=== PATIENT | female | born 1985 | race Caucasian/White ===

== ENCOUNTER 2017-08-05 01:16 | Emergency (ER) | payer MEDICAID, OTHER ==
[~2017-08-05 01:16] MED LIST: MO6B PO
[2017-08-05] MEDS ORDERED: TETANUS/DIPHTHERIA TOXOID [ADULT] 0.5 ML VIAL IM ONE (01:40)
[2017-08-05] MEDS ORDERED: LIDOCAINE HCL 1% 20 ML VIAL ONE (01:45)
[2017-08-05] MEDS ORDERED: ACETAMINOPHEN-CODEINE ELIXIR 5 ML UDCUP ONE (01:58)
== END 2017-08-05 02:41 | disposition home or self-care (01) ==
LOC: EDH 01:16
DX: S61.011A Laceration without foreign body of right thumb without damage to nail, initial encounter (principal); Z72.0 Tobacco use; W25.XXXA Contact with sharp glass, initial encounter; Y93.89 Activity, other specified; Y92.098 Other place in other non-institutional residence as the place of occurrence of the external cause; Y99.8 Other external cause status
CPT/HCPCS: 12042; 73130; 90471; 90714

== ENCOUNTER 2023-05-16 12:50 | Emergency (ER) | payer OTHER ==
[~2023-05-16] VITALS: Ht 152.4 cm; Wt 81.6 kg
[~2023-05-16 12:50] MED LIST changes: +IBUP-2088 PO; -MO6B PO
[2023-05-16 13:02] VITALS: BP 122/67; PULSE 73; RESP 16
[2023-05-16 13:20] LABS: HEMATOCRIT 40.8 % (36-48); MEAN CORPUSCULAR HEMOGLOBIN 30.8 pg (27.0-33.0); MEAN CORPUSCULAR HGB CONC 33.3 g/dL (32.0-36.0); MEAN CORPUSCULAR VOLUME 92.5 fL (79-99); RED BLOOD CELL COUNT(AUTO) 4.41 MIL/uL (4.00-5.50); RED CELL DISTRIBUTION WIDTH 12.4 % (11.0-15.5); WHITE BLOOD COUNT (AUTO) 8.2 K/uL (4.8-10.8)
[2023-05-16 13:30] LABS: CREATININE 0.7 mg/dL (0.5-1.5); POTASSIUM 3.6 mmol/L (3.5-5.1)
[2023-05-16 13:35] LABS: ALBUMIN 3.7 g/dL (3.5-5.0); BILIRUBIN,TOTAL 0.5 mg/dL (0.2-1.0)
[2023-05-16] MEDS ORDERED: MECL-302 PO (14:40)
== END 2023-05-16 14:48 | disposition home or self-care (01) ==
LOC: EDH 12:50
DX: R00.2 Palpitations (principal); R42 Dizziness and giddiness; Z79.899 Other long term (current) drug therapy
CPT/HCPCS: 36415; 80053; 84484; 85027; 93005

== ENCOUNTER 2024-01-12 13:34 | Emergency (ER) | payer BC ==
[~2024-01-12] VITALS: Ht 152.4 cm; Wt 75.7 kg
[~2024-01-12 13:34] MED LIST changes: +MECL-302 PO
[2024-01-12 14:10] VITALS: BP 116/73; PULSE 68; RESP 17; O2SAT 99
[2024-01-12] MEDS: NEOMY SULF/BACITRA/POLYMYXIN B 1 EACH PACKET TP ONE (14:22)
[2024-01-12] MEDS: acetaMINOPHEN 500 MG TABLET PO ONE (14:22)
[2024-01-12] MEDS: LIDOCAINE HCL 1% 20 ML VIAL INJ SCH (14:23)
[2024-01-12] MEDS: teTANUS/diphthERIA TOXOID [ADULT] 0.5 ML VIAL IM ONE (14:25)
== END 2024-01-12 14:52 | disposition home or self-care (01) ==
LOC: EDH 13:34
DX: S61.216A Laceration without foreign body of right little finger without damage to nail, initial encounter (principal); Z79.899 Other long term (current) drug therapy; W26.0XXA Contact with knife, initial encounter; Y93.89 Activity, other specified; Y92.89 Other specified places as the place of occurrence of the external cause; Y99.8 Other external cause status
CPT/HCPCS: 12001; 90471; 90714

== ENCOUNTER 2024-03-09 03:54 | Emergency (ER) | payer BC ==
[~2024-03-09] VITALS: Ht 152.4 cm; Wt 76.7 kg
[2024-03-09 03:55] VITALS: TEMP 97.6
--- NOTE | 2024-03-09 04:42 | ERN ---
General Chief Complaint: Dizzy/Light Headed Stated Complaint: C/O DIZZINESS Time Seen by MD: 04:02 Source: patient History of Present Illness Initial Comments Patient is a 38-year-old female coming in to be evaluated for dizziness. Patient states the symptoms began earlier today. She decided to come in to be evaluated. She also states that she had the symptoms before in the past. Allergies: Coded Allergies: No Known Drug Allergies (Unverified Allergy, Unknown, 02/09/14) Home Meds Active Scripts Meclizine HCl (Meclizine HCl) 25 Mg Tablet, 25 MG PO TID for vertigo, #30 TAB 0 Refills Prov:SONDRA GUEVARA [employer]APLE 05/16/23 Reported Medications Ibuprofen (Motrin/Advil) 600 Mg Tab, 600 MG PO Q8H PRN for PAIN LEVEL 1 TO 5, #20 TAB 01/05/16 Past Medical History Past Medical History: No Pertinent History Medical History Other: DENIES HX Past Surgical History: None Female( History) History: Not Applicable LMP: Jan 26, 2024 ROS Dictation CONSTITUTIONAL: No chills, no fever, no weakness, no diaphoresis, no malaise. HEAD/FACE: No signs of trauma. EENT: No eye pain, no blurred vision, no tearing, no double vision, no ear pain, no ear discharge, no nose pain, no nasal congestion, no throat pain, no throat swelling, no mouth pain. RESPIRATORY: No cough, no orthopnea, no SOB, no stridor, no wheezing. CARDIOVASCULAR: No chest pain, no edema, no palpitations, no syncope. GASTROINTESTINAL/ABDOMINAL: No abdominal pain, no constipation, no diarrhea, no nausea, no vomiting. GENITOURINARY: No abnormal discharge, no dysuria, no frequent urination, no hematuria. No complaints of pain in the genitals. MUSCULOSKELETAL: No back pain, no gout, no joint pain, no joint swelling, no muscle pain, no muscle stiffness, no neck pain. INTEGUMENTARY: No change in color, no change in hair/nails, no dryness, no lesion, no lumps, no rash. NEUROLOGICAL/PSYCH: No anxiety, not depressed, no emotional problem, no headach e, no numbness, no pre-existing deficit, no history of seizures, no tremors, no weakness. HEMATOLOGIC/LYMPHATIC: Not anemic, no history of blood clots, no apparent bleeding, no bruising, glands not swollen. All Systems Negative, Except as Noted. Physical Exam Physical Exam Dictation VITAL SIGNS: Reviewed. GENERAL APPEARANCE: Alert, oriented x3, no acute distress, obese. HEAD AND FACE: Non-traumatic. EYES: PERRL, pink conjunctivas, eyelid no trauma, anterior chamber clear. EARS: Pinnas intact and no signs of trauma or erythema. Ear canals clear and no discharge. TMs no erythema. NOSE: No discharge, no bleeding. OROPHARYNX: Mouth normal, teeth no caries, tongue pink. Pharynx clear, no erythema. Tonsils no exudates, no abscesses noted. Mucous membrane moist. NECK: Supple, non-tender, no thyromegaly, no masses, no JVD, no bruits. BREAST: Deferred. CHEST: No tenderness, no crepitus, no paradoxical movement, no retractions. LUNGS: Clear, well-ventilated, symmetric, no rales, no wheezing, no rhonchi, no stridor, good breath sounds bilaterally. HEART: Regular rate, regular rhythm, no murmur, no gallops. VASCULAR: No peripheral edema. ABDOMEN: Soft, positive bowel sounds, nondistended, no guarding, nontender, no rebound, no masses no hepatomegaly, no splenomegaly, no Goldberg's sign, no hernias. RECTAL: Deferred. GENITAL: Deferred. NEUROLOGICAL: Normal speech, gross motor function intact, gross sensory function intact. MUSCULOSKELETAL: Neck nontender, full range of motion, back nontender, full range of motion. EXTREMITIES: Nontender, full range of motion. SKIN: Color pink, dry, no turgor, no rash, no lacerations, no abrasions, no contusions. LYMPHATICS: Deferred. Results Laboratory and Microbiology Lab and Micro Result Laboratory Tests Test 03/09/24 04:38 White Blood Count 8.5 K/uL (4.8-10.8) Red Blood Count 4.17 MIL/uL (4.00-5.50) Hemoglobin 13.1 g/dL (12.0-16.0) Hematocrit 38.7 % (36-48) Mean Corpuscular Volume 92.8 fL (79-99) Mean Corpuscular Hemoglobin 31.4 pg (27.0-33.0) Mean Corpuscular Hemoglobin Concent 33.9 g/dL (32.0-36.0) Red Cell Distribution Width 11.9 % (11.0-15.5) Platelet Count 273 K/uL (130-400) Mean Platelet Volume 10.6 fL (7.5-10.5) H Immature Granulocyte % (Auto) 0.1 % (0-1) Neutrophils (%) (Auto) 64.5 % (40.0-77.0) Lymphocytes (%) (Auto) 25.6 % (21.0-51.0) Monocytes (%) (Auto) 7.3 % (3.0-13.0) Eosinophils (%) (Auto) 1.9 % (0.0-8.0) Basophils (%) (Auto) 0.6 % (0.0-5.0) Neutrophils # (Auto) 5.5 K/uL (1.8-7.7) Lymphocytes # (Auto) 2.2 K/uL (1.0-4.8) Monocytes # (Auto) 0.6 K/uL (0.1-1.0) Eosinophils # (Auto) 0.16 K/uL (0.00-0.70) Basophils # (Auto) 0.05 K/uL (0.00-0.20) Absolute Immature Granulocyte (auto 0.01 K/uL (0-1) Nucleated Red Blood Cells 0.0 % (0.0-0.19) Prothrombin Time 10.4 SEC (9.6-11.6) Prothromb Time International Ratio 0.96 (0.85-1.15) Urine Color COLORLESS (YELLOW) Urine Appearance CLEAR (CLEAR) Urine pH 7.0 (5.0-8.0) Urine Specific [place] 1.008 (1.001-1.031) Urine Protein NEGATIVE mg/dL (NEGATIVE) Urine Glucose (UA) NEGATIVE mg/dL (NEGATIVE) Urine Ketones NEGATIVE mg/dL (NEGATIVE) Urine Occult Blood NEGATIVE (NEGATIVE) Urine Nitrate NEGATIVE (NEGATIVE) Urine Bilirubin NEGATIVE mg/dL (NEGATIVE) Urine Urobilinogen 0.2 mg/dL (0.2-1.0) Urine Leukocyte Esterase NEGATIVE Opal/uL Urine HCG, Qualitative NEGATIVE (NEGATIVE) Sodium Level 138 mmol/L (136-145) Potassium Level 3.3 mmol/L (3.5-5.1) L Chloride Level 104 mmol/L (101-111) Carbon Dioxide Level 26 mmol/L (21-32) Blood Urea Nitrogen 8 mg/dL (7-18) Creatinine 0.7 mg/dL (0.5-1.0) Glomerular Filtration Rate Calc 114 mL/min (>90) Random Glucose 113 mg/dL (70-105) H Total Calcium 8.3 mg/dL (8.5-10.1) L Total Creatine Kinase 140 U/L (21-232) Troponin I High Sensitivity < 4 ng/L (4-50) L B-Type Natriuretic Peptide 14 pg/mL (0-100) Urine Opiates Screen NEGATIVE (NEGATIVE) Urine Barbiturates Screen NEGATIVE (NEGATIVE) Urine Phencyclidine Screen NEGATIVE (NEGATIVE) Urine Amphetamines Screen NEGATIVE (NEGATIVE) Urine Benzodiazepines Screen NEGATIVE (NEGATIVE) Urine Cocaine Screen NEGATIVE (NEGATIVE) Urine Marijuana (THC) Screen POSITIVE (NEGATIVE) H Labs Reviewed?: Yes EKG/XRAY/US/CT/MRI EKG Comment 03/09/2024 time 4:41 a.m. Ventricular rate 65 Sinus rhythm [place] [address] wave elevation or depression MDM MDM: Differential diagnosis: Cannabis abuse, dehydration, URI Patient is a 38-year-old female coming in to be evaluated for vertigo. Upon evaluation patient was positive for cannabis I counseled her into avoiding cannabis as she states that the nauseousness it was causing her dizziness. Patient is alert and oriented since she was hydrated and given antiemetics states he feels better. ED Course Orders Procedure Category Date Status Time Cbc With Differential LAB 03/09/24 Complete 04:09 Prothrombin Time With LAB 03/09/24 Complete INR 04:09 B-Type Natriuretic LAB 03/09/24 Complete Peptide 04:09 12 Lead Ekg Tracing- EKG 03/09/24 Complete Technical 04:09 Lactated Ringers PHA 03/09/24 Complete 1000ml (Lactated 04:30 Creatine Kinase, Total LAB 03/09/24 Complete 04:09 Troponin I High LAB 03/09/24 Complete Sensitivity 04:09 Urinalysis Profile LAB 03/09/24 Complete 04:09 Basic Metabolic Panel LAB 03/09/24 Complete 04:09 Meclizine Hcl 25 Mg PHA 03/09/24 Complete (Antivert 25 Mg) 04:30 Covid Rna Naat LAB 03/09/24 Logged 04:09 Drug Screen Urine LAB 03/09/24 Complete 04:34 ,Urine Test LAB 03/09/24 Complete 05:23 Haloperidol Inj PHA 03/09/24 Complete (Haldol Inj) 05:30 Ondansetron 4mg Inj PHA 03/09/24 Complete (Zofran 4mg Inj) 06:00 Current Medications Medications (Trade) Dose Ordered Sig/Nazia Route PRN Reason Start Time Stop Time Status Last Admin Dose Admin Haloperidol Lactate (Haldol Inj) 2.5 mg ONCE STAT IV 03/09/24 05:30 03/09/24 05:31 DC Lactated Ringer's 1,000 ml @ 0 mls/hr ONCE ONCE IV 03/09/24 04:30 03/09/24 04:31 DC 03/09/24 04:45 Meclizine HCl (ANTIvert 25 mg) 25 mg ONCE ONCE PO 03/09/24 04:30 03/09/24 04:31 DC 03/09/24 04:45 Ondansetron HCl (zoFRAN 4MG INJ) 4 mg ONCE ONCE IVP 03/09/24 06:00 03/09/24 06:01 DC 03/09/24 05:42 Vital Signs Date Time Temp Pulse Resp B/P (MAP) Pulse Ox O2 Delivery O2 Flow Rate FiO2 03/09/24 05:07 61 18 104/63 98 Room Air* 0 21 03/09/24 03:55 97.5 76 20 134/84 98 Room Air DX & DISP Disposition: Discharge Departure Impression: Primary Impression: Dizziness Additional Impression: Cannabis abuse Condition: Stable Scripts Ondansetron (Ondansetron Odt) 4 Mg Tab.rapdis 4 MG PO BID PRN for n/v for 3 Days, #6 TAB Prov: NOMAN BUI MD 03/09/24 Additional Instructions: FOLLOW-UP WITH PRIMARY CARE PROVIDER IN 1 TO 2 DAYS. TAKE MEDICATIONS DIRECTED HERE IN THE EMERGENCY ROOM. OKAY TO CONTINUE HOME MEDICATIONS UNLESS OTHERWISE DISCUSSED DURING YOUR VISIT IN THE EMERGENCY ROOM TODAY. RETURN TO YOUR NEAREST EMERGENCY ROOM IF SYMPTOMS WORSEN OR IF THERE IS NO IMPROVEMENT. CALL 911 IF YOU NEED IMMEDIATE ASSISTANCE. TAKE TYLENOL AWAM-OEJ-ZEKGNAG NEEDED AND IF NO CONTRAINDICATIONS ARE PRESENT. INCREASE ORAL HYDRATION. A WOUND CULTURE OR URINE CULTURE WAS ORDERED HERE IN THE EMERGENCY ROOM DEPARTMENT PLEASE FOLLOW-UP WITH PRIMARY CARE PROVIDER AND ADVISE THEM TO GET REPEAT PORTS FROM OUR FACILITY. IF YOU HAD ANY NURIS WRAP/SPLINTS THAT WERE APPLIED HERE, PLEASE DO NOT REMOVE THEM UNTIL YOU SEE YOUR PRIMARY CARE OR SPECIALTY. Referrals: Referrals: HARLEY REYES (PCP) Time of Disposition: 06:17 NOMAN BUI MD Mar 09, 2024 04:42
[2024-03-09] MEDS: LACTATED RINGERS 1000ML 1,000 ML IV ONE (04:45)
[2024-03-09] MEDS: mecliZINE HCL 25 MG TABLET PO ONE (04:45)
[2024-03-09 04:49] LABS: BASOPHILS # (AUTO) 0.05 K/uL (0.00-0.20); BASOPHILS % (AUTO) 0.6 % (0.0-5.0); EOSINOPHILS # (AUTO) 0.16 K/uL (0.00-0.70); EOSINOPHILS % (AUTO) 1.9 % (0.0-8.0); HEMATOCRIT 38.7 % (36-48); IMMATURE GRANULOCYTE ABSOLUTE 0.01 K/uL (0-1); LYMPHOCYTES # (AUTO) 2.2 K/uL (1.0-4.8); LYMPHOCYTES % (AUTO) 25.6 % (21.0-51.0); MEAN CORPUSCULAR HEMOGLOBIN 31.4 pg (27.0-33.0); MEAN CORPUSCULAR HGB CONC 33.9 g/dL (32.0-36.0); MEAN CORPUSCULAR VOLUME 92.8 fL (79-99); MONOCYTES # (AUTO) 0.6 K/uL (0.1-1.0); MONOCYTES % (AUTO) 7.3 % (3.0-13.0); NEUTROPHILS # (AUTO) 5.5 K/uL (1.8-7.7); NEUTROPHILS % (AUTO) 64.5 % (40.0-77.0); PLATELET COUNT (AUTO) 273 K/uL (130-400); RED BLOOD CELL COUNT(AUTO) 4.17 MIL/uL (4.00-5.50); RED CELL DISTRIBUTION WIDTH 11.9 % (11.0-15.5); WHITE BLOOD COUNT (AUTO) 8.5 K/uL (4.8-10.8)
[2024-03-09 04:51] LABS: ADD UA MICROSCOPIC NO; APPEARANCE,URINE CLEAR (CLEAR); BILIRUBIN,URINE NEGATIVE (NEGATIVE); COLOR,URINE COLORLESS (YELLOW); GLUCOSE, URINE (UA) NEGATIVE (NEGATIVE); KETONES,URINE NEGATIVE (NEGATIVE); LEUKOCYTE ESTERASE ,URINE NEGATIVE Leu/uL (NEGATIVE); NITRATE,URINE NEGATIVE (NEGATIVE); OCCULT BLOOD,URINE NEGATIVE (NEGATIVE); PROTEIN,URINE NEGATIVE (NEGATIVE); UROBILINOGEN,URINE 0.2 mg/dL (0.2-1.0)
[2024-03-09 04:57] LABS: AMPHET/METH SCREEN,URINE NEGATIVE (NEGATIVE); BARBITURATE SCREEN, URINE NEGATIVE (NEGATIVE); BENZODIAZEPINES SCREEN,URINE NEGATIVE (NEGATIVE); CANNABINOID SCREEN,URINE POSITIVE (NEGATIVE); COCAINE SCREEN,URINE NEGATIVE (NEGATIVE); OPIATE SCREEN,URINE NEGATIVE (NEGATIVE); PHENCYCLIDINE SCREEN,URINE NEGATIVE (NEGATIVE)
[2024-03-09 05:04] LABS: INR 0.96 (0.85-1.15); PROTHROMBIN TIME 10.4 SEC (9.6-11.6)
[2024-03-09 05:09] LABS: B-TYPE NATRIURETIC PEPTIDE 14 pg/mL (0-100)
[2024-03-09 05:15] LABS: CREATININE 0.7 mg/dL (0.5-1.0); POTASSIUM 3.3 mmol/L (3.5-5.1)
--- NOTE | 2024-03-09 05:15 | EKG ---
[facility] Test Date: 2024-03-09 Test Time: 04:41:48 Pat Name: HUMERA GAYLE Department: ED Room: Gender: F Vp Outcomes: [id number] : 1985 Requested By: NOMAN BUI Order Number: [id number] Reading MD: Jose R Banks Measurements Intervals [place] Rate: 65 P: -8 OR: 189 QRS: 43 QRSD: 72 T: 79 QT: 388 QTc: 403 Interpretive Statements Sinus rhythm Low voltage, precordial leads Consider anterior infarct Compared to ECG 05/16/2023 13:29:58 Low QRS voltage now present Myocardial infarct finding now present Electronically Signed On 03-09-2024 20:49:23 PRODUCT RESPONSIBILITY LIAISON by Jose R Banks Please click the below link to view image of tracing.
[2024-03-09] MEDS: ondanSETRON 4MG INJ IVP ONE (05:42)
[2024-03-09 06:17] VITALS: BP 110/71; PULSE 54; RESP 18; O2SAT 98
[2024-03-09] MEDS ORDERED: ONDA-243 PO (06:18)
[2024-03-09] MEDS: HALOPERIDOL INJ 5 MG/ML VIAL IV STA (06:25)
== END 2024-03-09 06:36 | disposition home or self-care (01) ==
LOC: EDH 03:54
DX: R42 Dizziness and giddiness (principal); F12.10 Cannabis abuse, uncomplicated; Z79.899 Other long term (current) drug therapy
CPT/HCPCS: 99284; 96374; 96361; 82550; 84484; 80048; 83880; 80305; 85025; 85610; 81025; 36415; 93005; 81003; J7120; J2405

== ENCOUNTER 2024-05-09 13:09 | Emergency (ER) | payer BC ==
[~2024-05-09] VITALS: Ht 162.6 cm; Wt 81.6 kg
[~2024-05-09 13:09] MED LIST changes: +ONDA-243 PO
--- NOTE | 2024-05-09 13:14 | EKG ---
[facility] Test Date: 2024-05-09 Test Time: 13:07:36 Pat Name: HUMERA GAYLE Department: ED Room: Gender: F Superintendent Overhead Distribution: [id number] : 1985 Requested By: NURIS HONG Order Number: [id number] Reading MD: Curtis Martinze Measurements Intervals [place] Rate: 72 P: 1 DE: 146 QRS: 61 QRSD: 76 T: 74 QT: 390 QTc: 429 Interpretive Statements Sinus rhythm Compared to ECG 03/09/2024 04:41:48 Myocardial infarct finding no longer present Electronically Signed On 05-10-2024 20:01:41 BASKET TURNER by Curtis Martinez Please click the below link to view image of tracing.
[2024-05-09 13:56] LABS: BASOPHILS # (AUTO) 0.04 K/uL (0.00-0.20); BASOPHILS % (AUTO) 0.5 % (0.0-5.0); EOSINOPHILS # (AUTO) 0.07 K/uL (0.00-0.70); EOSINOPHILS % (AUTO) 0.9 % (0.0-8.0); HEMATOCRIT 40.6 % (36-48); IMMATURE GRANULOCYTE ABSOLUTE 0.02 K/uL (0-1); LYMPHOCYTES # (AUTO) 2.4 K/uL (1.0-4.8); LYMPHOCYTES % (AUTO) 31.2 % (21.0-51.0); MEAN CORPUSCULAR HEMOGLOBIN 30.3 pg (27.0-33.0); MEAN CORPUSCULAR VOLUME 89.2 fL (79-99); MONOCYTES # (AUTO) 0.4 K/uL (0.1-1.0); MONOCYTES % (AUTO) 5.6 % (3.0-13.0); NEUTROPHILS # (AUTO) 4.8 K/uL (1.8-7.7); NEUTROPHILS % (AUTO) 61.5 % (40.0-77.0); PLATELET COUNT (AUTO) 286 K/uL (130-400); RED BLOOD CELL COUNT(AUTO) 4.55 MIL/uL (4.00-5.50); WHITE BLOOD COUNT (AUTO) 7.7 K/uL (4.8-10.8)
[2024-05-09 14:04] LABS: POTASSIUM 3.2 mmol/L (3.5-5.1)
--- NOTE | 2024-05-09 14:11 | HMCIMG ---
CHEST 1VW REASON: CHEST PAIN COMPARISON: None. FINDINGS: Single view of the chest was obtained. Lungs are clear. Heart size is normal. There is no pulmonary vascular congestion. Mediastinum and bony thorax appear unremarkable. IMPRESSION: 1. Normal single view chest x-ray.
--- NOTE | 2024-05-09 14:28 | ERN ---
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 Patient complains of back pain, but denies any SOB, vomiting or any other associated symptoms at this time. Patient states describes her chest pain as dull. Allergies: Coded Allergies: No Known Drug Allergies (Unverified Allergy, Unknown, 02/09/14) Home Meds Active Scripts Cyclobenzaprine HCl (Cyclobenzaprine HCl) 5 Mg Tablet, 5 MG PO BID for 5 Days, #10 TAB Prov:NURIS HONG MD 05/09/24 Ondansetron (Ondansetron Odt) 4 Mg Tab.rapdis, 4 MG PO BID PRN for n/v for 3 Days, #6 TAB Prov:NOMAN BUI MD 03/09/24 Meclizine HCl (Meclizine HCl) 25 Mg Tablet, 25 MG PO TID for vertigo, #30 TAB 0 Refills Prov:SONDRA GUEVARA [employer] COORDINATOR 05/16/23 Reported Medications Ibuprofen (Motrin/Advil) 600 Mg Tab, 600 MG PO Q8H PRN for PAIN LEVEL 1 TO 5, #20 TAB 01/05/16 Past Medical History Past Medical History: No Pertinent History Additional Past Medical Hx: DENIES HX Surgical History: None History: Not Applicable Review of System Dictation Constitutional: Negative for fever,chills, and weight loss Eyes: Negative for injury, pain,redness, and discharge ENT: Negative for injury,pain or swelling Cardiovascular: Positive for chest pain negative for palpitations, and edema Respiratory: Positive for shortness of breath negative for cough, and wheezing, Abdomen/GI: Negative for abdominal pain, nausea, vomiting, diarrhea, and constip ation Back: Negative for injury and pain : Negative for injury, bleeding and discharge MS/Extremity: Negative for injury and deformity Skin: Negative for rash, and discoloration Neuro: Negative for headache, weakness, numbness, tingling, and seizure Psych: Negative for suicide ideation, homicidal ideation, and hallucinations Initial Vital Sign VS Vital Signs Date Time Temp Pulse Resp B/P (MAP) Pulse Ox O2 Delivery O2 Flow Rate FiO2 05/09/24 15:16 98.2 81 20 131/84 97 Room Air 0 Physical Exam Dictation General: awake, alert, NAD Head/Face: Normocephalic, atraumatic Eyes: PERRL, EOMI, vision at baseline ENT: oral cavity clear, TMs clear, no signs of infection Neck: Trachea midline, supple, no nuchal rigidity Cardiovascular: RRR, normal S1/S2, No MRGs, no JVD Respiratory: CTAB, no respiratory distress, No rales or wheezes Abdomen: Soft, non-tender, non-distended, normal bowel sounds, no guarding or rebound. Skin: Warm, dry, normal turgor, no rash MS/Extremity: Pulses equal, no cyanosis, neurovascular intact, FROM Neuro: COAx4, GCS 15, strength 5/5, CN 2-12 intact, normal cerebellar exam, normal gait, Psych: Normal behavior, mood, and affect normal Results (Laboratory/Radiology) Laboratory/Radiology Laboratory Tests Test 05/09/24 13:30 05/09/24 13:58 White Blood Count 7.7 K/uL (4.8-10.8) Red Blood Count 4.55 MIL/uL (4.00-5.50) Hemoglobin 13.8 g/dL (12.0-16.0) Hematocrit 40.6 % (36-48) Mean Corpuscular Volume 89.2 fL (79-99) Mean Corpuscular Hemoglobin 30.3 pg (27.0-33.0) Mean Corpuscular Hemoglobin Concent 34.0 g/dL (32.0-36.0) Red Cell Distribution Width 12.0 % (11.0-15.5) Platelet Count 286 K/uL (130-400) Mean Platelet Volume 10.5 fL (7.5-10.5) Immature Granulocyte % (Auto) 0.3 % (0-1) Neutrophils (%) (Auto) 61.5 % (40.0-77.0) Lymphocytes (%) (Auto) 31.2 % (21.0-51.0) Monocytes (%) (Auto) 5.6 % (3.0-13.0) Eosinophils (%) (Auto) 0.9 % (0.0-8.0) Basophils (%) (Auto) 0.5 % (0.0-5.0) Neutrophils # (Auto) 4.8 K/uL (1.8-7.7) Lymphocytes # (Auto) 2.4 K/uL (1.0-4.8) Monocytes # (Auto) 0.4 K/uL (0.1-1.0) Eosinophils # (Auto) 0.07 K/uL (0.00-0.70) Basophils # (Auto) 0.04 K/uL (0.00-0.20) Absolute Immature Granulocyte (auto 0.02 K/uL (0-1) Nucleated Red Blood Cells 0.0 % (0.0-0.19) Sodium Level 139 mmol/L (136-145) Potassium Level 3.2 mmol/L (3.5-5.1) L Chloride Level 103 mmol/L (101-111) Carbon Dioxide Level 27 mmol/L (21-32) Blood Urea Nitrogen 6 mg/dL (7-18) L Creatinine 1.0 mg/dL (0.5-1.0) Glomerular Filtration Rate Calc 74 mL/min (>90) Random Glucose 116 mg/dL (70-105) H Total Calcium 8.5 mg/dL (8.5-10.1) Total Creatine Kinase 106 U/L (21-232) # B-Type Natriuretic Peptide 9 pg/mL (0-100) Troponin I < 0.05 ng/mL (0.00-0.05) Labs Reviewed?: Yes EKG Comment: EKG 05/09/2024 time 1:07 p.m. ventricular rate 72, [place] 146, QRS D 76, QT 390. Sinus rhythm. No STEMI X-RAY Comment: REASON: CHEST PAIN ORDERING PHYSICIAN: NURIS HONG MD PROCEDURE: CXR1VW - CHEST 1VW CHEST 1VW REASON: CHEST PAIN COMPARISON: None. FINDINGS: Single view of the chest was obtained. Lungs are clear. Heart size is normal. There is no pulmonary vascular congestion. Mediastinum and bony thorax appear unremarkable. IMPRESSION: 1. Normal single view chest x-ray. DICTATED BY: ANASTACIA VILLALOBOS MD DATE: 05/09/24 1407 ED Course ED Course Orders Procedure Category Date Status Time Vital Signs Per CPOE 05/09/24 Transmitted Routine 13:10 B-Type Natriuretic LAB 05/09/24 Complete Peptide 13:10 Chest 1vw RAD 05/09/24 Resulted 13:10 12 Lead Ekg Tracing- EKG 05/09/24 Complete Technical 13:10 Oxygen By Nc/Pulse Ox CPOE 05/09/24 Transmitted 13:10 Maintain Iv CPOE 05/09/24 Transmitted 13:10 Iv Insertion CPOE 05/09/24 Transmitted 13:10 Cardiac Monitoring CPOE 05/09/24 Transmitted 13:10 Pulse Oximetry With CPOE 05/09/24 Transmitted Vs And Prn 13:10 Cbc With Differential LAB 05/09/24 Complete 13:10 Activity: Br W/Brp CPOE 05/09/24 Transmitted With Assist 13:10 Creatine Kinase, Total LAB 05/09/24 Complete 13:10 Urinalysis Profile LAB 05/09/24 Logged 13:10 Troponin Poc Order LAB 05/09/24 Complete Only 13:10 Bedside Troponin-I LAB.ER 05/09/24 In Process (Poc) 13:10 Basic Metabolic Panel LAB 05/09/24 Complete 13:10 Vital Signs Date Time Temp Pulse Resp B/P (MAP) Pulse Ox O2 Delivery O2 Flow Rate FiO2 05/09/24 15:16 98.2 81 20 131/84 97 Room Air 0 HEART Score Response (Comments) Value History: Low suspicion (0) 0 EKG: Normal 0 Age: < 45yrs (0) 0 Risk Factors: No known risk factors (0) 0 Initial Troponin: Normal limit (0) 0 HEART Score Risk: Low Risk for MACE (1-3) Total 0 Medical Decision Making MDM MDM: Differential diagnosis: Chest pain, back pain Negative PERC score Risk of complication and/or morbidity or mortality of patient management: None Medications-Per medication reconciliation Need for hospitalization: Patient does not meet criteria for hospitalization. Need for emergency major/minor surgery: No There are no social concerns with this patient. Prescription drug management Prescriptions will include symptomatic care I independently interpreted the test that were performed, results were reviewed by me and considered findings on radiology if ordered. DX & DISP Disposition: Discharge Departure Impression: Primary Impression: Chest pain Condition: Stable Scripts Cyclobenzaprine HCl (Cyclobenzaprine HCl) 5 Mg Tablet 5 MG PO BID for 5 Days, #10 TAB Prov: NURIS HONG MD 05/09/24 Referrals: SELF,REFERRAL (PCP) NURIS HONG MD May 09, 2024 14:28
[2024-05-09 14:32] LABS: B-TYPE NATRIURETIC PEPTIDE 9 pg/mL (0-100)
[2024-05-09] MEDS ORDERED: CYCL5TAB3 PO (16:06)
[2024-05-09 16:50] VITALS: BP 132/65; PULSE 77; RESP 18; TEMP 98; O2SAT 98
== END 2024-05-09 16:51 | disposition home or self-care (01) ==
LOC: EDH 13:09
DX: R07.89 Other chest pain (principal); Z79.899 Other long term (current) drug therapy
CPT/HCPCS: 36415; 71045; 80048; 82550; 83880; 84484; 85025; 93005; 99284

== ENCOUNTER 2025-02-20 19:53 | Emergency (ER) | payer BC ==
[~2025-02-20] VITALS: Ht 152.4 cm; Wt 85.3 kg
[~2025-02-20 19:53] MED LIST changes: +CYCL5TAB3 PO; -IBUP-2088 PO; +IBUP-2859 PO
--- NOTE | 2025-02-20 20:09 | ERN ---
General Chief Complaint: Hand Problem/Injury Stated Complaint: C/O WOUND TO RT HAND Time Seen by MD: 20:04 History of Present Illness Initial Comments 39-year-old female here for evaluation of right hand injury and is requesting a rabies vaccine. Patient states that her dogs/cats at home has been in contact with the bat and may have bit into a bag. Afterwards. The following day the patient's right hand which has a splint to urinate got licked by the dogs. She is unsure if that is specific dog bit into the back however she is seeking the rabies vaccine at this time. No fever no cough or shortness breath. No nausea vomiting diarrhea. Animals are her own and can be observed by her. Allergies: Coded Allergies: No Known Drug Allergies (Unverified Allergy, Unknown, 02/09/14) Home Meds Active Scripts Cyclobenzaprine HCl (Cyclobenzaprine HCl) 5 Mg Tablet, 5 MG PO BID for 5 Days, #10 TAB Prov:NURIS HONG MD 05/09/24 Ondansetron (Ondansetron Odt) 4 Mg Tab.rapdis, 4 MG PO BID PRN for n/v for 3 Days, #6 TAB Prov:NOMAN BUI MD 03/09/24 Meclizine HCl (Meclizine HCl) 25 Mg Tablet, 25 MG PO TID for vertigo, #30 TAB 0 Refills Prov:SONDRA GUEVARA PROPOSAL REP 05/16/23 Reported Medications Ibuprofen (Motrin/Advil) 600 Mg Tab, 600 MG PO Q8H PRN for PAIN LEVEL 1 TO 5, #20 TAB 01/05/16 Past Medical History Past Medical History: No Pertinent History Medical History Other: DENIES HX Past Surgical History: None Female( History) History: Not Applicable Review of Systems: was completed, & the rest were negative. Physical Exam General Appearance: (+) no apparent distress Orientation: (+) alert, (+) oriented x 3 Eye: bilateral eye normal inspection, bilateral eye PERRL, bilateral eye EOMI Ear, Nose, Throat: (+) hearing grossly normal, (+) normal ENT inspection, (+) moist mucous membraine Skin Comment 1 mm puncture on dorsal aspect of right hand. Medial aspect. No overlying erythema. No swelling. No fluctuance MDM 39-year-old female here for evaluation and rabies vaccine. I advised her that she needs to get the vaccine for multiple days including today, day three, day seven, day 14. She also get rabies immunoglobulin. Advised her to follow up with the PCP and/or other pharmacy if she requires the rest of the vaccine schedule. She is always welcome to come back here for evaluation. I advised her that she needs to keep an eye and return to PCP if any changes in mental status of the dog. I spoke to her and said that we do not have the immunoglobulin here. We will however give her with the vaccine. Handout from the [facility] given https://www.cdc.gov/vaccines/hcp/current-vis/downloads/rabies.pdf Advised her to come to primary care doctor or here for scheduled doses ED Course Orders Procedure Category Date Status Time Rabies Vacc, Human PHA 02/20/25 Complete Diploid/Pf (Imovax Ra 20:30 Rabies Immune PHA 02/20/25 Complete Globulin/Thimer 20:30 Current Medications Medications (Trade) Dose Ordered Sig/Nazia Route PRN Reason Start Time Stop Time Status Last Admin Dose Admin Rabies Immune Globulin (Bayrab/Hyperab S/D) 300 units ONCE ONCE IM 02/20/25 20:30 02/20/25 20:14 DC Rabies Vaccine Human Diploid Cell (Imovax Rabies Vaccine) 2.5 unit ONCE ONCE IM 02/20/25 20:30 02/20/25 20:31 DC Vital Signs Date Time Temp Pulse Resp B/P (MAP) Pulse Ox O2 Delivery O2 Flow Rate FiO2 02/20/25 19:55 97.3 98 20 144/91 100 Room Air DX & DISP Disposition: Discharge Departure Impression: Primary Impression: Rabies exposure Condition: Stable Referrals: NONE (PCP) LA BARBOSA MD Feb 20, 2025 20:09
[2025-02-20 22:01] VITALS: BP 121/66; PULSE 75; RESP 18; TEMP 98.8; O2SAT 99
[2025-02-20] MEDS: RABIES VACC, HUMAN DIPLOID/PF 2.5 UNIT ML IM ONE (22:17)
== END 2025-02-20 22:27 | disposition home or self-care (01) ==
LOC: EDH 19:53
DX: S69.91XA Unspecified injury of right wrist, hand and finger(s), initial encounter (principal); Z20.3 Contact with and (suspected) exposure to rabies; Z23 Encounter for immunization; X58.XXXA Exposure to other specified factors, initial encounter; Y93.89 Activity, other specified; Y92.89 Other specified places as the place of occurrence of the external cause; Y99.8 Other external cause status
CPT/HCPCS: 90471; 90675; 99284